=== PATIENT | male | born 1995 | race Two or more races ===

== ENCOUNTER 2017-08-21 11:01 | Emergency (ER) | payer MEDICAID ==
[~2017-08-21] VITALS: Ht 172.7 cm; Wt 83.9 kg
--- NOTE | 2017-08-21 11:10 | NUR ---
[id number], came to ER c/o flu-like symptoms -- NAUSEA, VOMITING, COUGH,WEAKNESS SINCE THURSDAY. RR is even and unlabored with nad noted. skin is warm and dry. Awaiting md for eval.
[2017-08-21] MEDS ORDERED: ONDANSETRON 4 MG TAB.RAPDIS ONE (12:16)
--- NOTE | 2017-08-21 12:21 | NUR ---
Patient discharged to home in stable condition. Written and verbal after care instructions given. Patient verbalizes understanding of instruction.
[2017-08-21 12:22] VITALS: BP 122/55
[2017-08-21] MEDS ORDERED: ONDANSETRON 4 MG TAB.RAPDIS PO ONE (12:30)
== END 2017-08-21 12:22 | disposition home or self-care (01) ==
LOC: ER 11:05
DX: R11.2 Nausea with vomiting, unspecified (principal); J11.1 Influenza due to unidentified influenza virus with other respiratory manifestations; F17.200 Nicotine dependence, unspecified, uncomplicated
CPT/HCPCS: 99283; A4606; Q0162; Z7610

== ENCOUNTER 2017-09-29 12:56 | Emergency (ER) | payer BC, OTHER ==
[~2017-09-29] VITALS: Ht 170.2 cm; Wt 74.8 kg
[2017-09-29 13:14] VITALS: BP 131/75
== END 2017-09-29 13:50 | disposition home or self-care (01) ==
LOC: ER 13:01
DX: S39.012A Strain of muscle, fascia and tendon of lower back, initial encounter (principal); S19.9XXA Unspecified injury of neck, initial encounter; F17.200 Nicotine dependence, unspecified, uncomplicated; Z60.2 Problems related to living alone; V43.52XA Car driver injured in collision with other type car in traffic accident, initial encounter; Y93.89 Activity, other specified; Y92.89 Other specified places as the place of occurrence of the external cause; Y99.8 Other external cause status
CPT/HCPCS: A4606; Z7610